=== PATIENT | female | born 1955 | race Caucasian/White ===

== ENCOUNTER 2022-06-25 00:36 | Inpatient (IN) | payer MEDICARE, OTHER ==
[2022-06-25 00:47] VITALS: BMI 39.0
[2022-06-25] MEDS ORDERED: ACETAMINOPHEN 1000 MG/100 ML BAG IVPB ONE (03:27)
[2022-06-25] MEDS ORDERED: ACETAMINOPHEN INJECTION 100 ML IVPB ONE (03:31)
[2022-06-25 03:39] LABS: EPI CELLS >36 /uL (0-25.1); HYALINE CASTS 10 /uL (0-3.1); URINE APPEARANCE TURBID; URINE BACTERIA 4765 /uL (0-1359); URINE BILIRUBIN 1+ (NEGATIVE); URINE COLOR DK YELLOW; URINE GLUCOSE (UA) TRACE (NEGATIVE); URINE KETONE TRACE (NEGATIVE); URINE LEUK ESTERASE 2+ (NEGATIVE); URINE NITRITE POSITIVE (NEGATIVE); URINE PROTEIN 2+ (NEGATIVE); URINE WBC 1354 /uL (0-25.8)
[2022-06-25 03:55] LABS: BASO % 0.7 % (0-2.0); EOS % 1.9 % (0-4.5); HEMATOCRIT 27.6 % (32.4-45.2); HEMOGLOBIN 9.2 GM/dL (10.7-15.3); LYMPH % 9.1 % (8-40); MCH 26.7 pg (25.7-33.7); MCHC 33.1 g/dl (32.0-36.0); MEAN CELL VOLUME 80.7 fl (80-96); MEAN PLT VOLUME 6.1 fl (7.5-11.1); MONO % 9.2 % (3.8-10.2); NEUT % 79.1 % (42.8-82.8); PLATELET COUNT 593 10^3/uL (134-434); RBC 3.43 M/mm3 (3.60-5.2); RDW 15.9 % (11.6-15.6)
[2022-06-25 03:56] LABS: INR 1.19 (0.83-1.09); PROTHROMBIN TIME (PATIENT) 13.8 SEC (9.7-13.0)
[2022-06-25] MEDS ORDERED: CEFTRIAXONE 1,000 MG in DEXTROSE 5%-WATER - 50 ML IVPB ONE (04:09)
[2022-06-25 04:14] LABS: ALBUMIN 1.9 g/dl (3.4-5.0); BLOOD UREA NITROGEN 28.3 mg/dL (7-18); CALCIUM 8.1 mg/dL (8.5-10.1)
[2022-06-25 04:17] LABS: CREATININE 1.8 mg/dL (0.55-1.3)
[2022-06-25 04:19] LABS: BILIRUBIN,TOTAL 0.6 mg/dL (0.2-1); TOT PROT 6.5 g/dl (6.4-8.2)
[2022-06-25 04:22] LABS: N-TERMINAL BNP 315.9 pg/ml (5-125)
[2022-06-25] MEDS ORDERED: CEFTRIAXONE 1 GM/50 ML BAG ONE (04:32)
[2022-06-25] MEDS ORDERED: SODIUM CHLORIDE 1,000 ML IV STA ×2 (05:03→14:45)
[2022-06-25] MEDS ORDERED: amLODIPine BESYLATE 10 MG TABLET (FP) PO ONE (09:45)
[2022-06-25] MEDS ORDERED: LISINOPRIL 20 MG TABLET PO SCH (10:00)
[2022-06-25] MEDS ORDERED: PANTOPRAZOLE 40 MG TABLET PO ONE (10:01)
[2022-06-25] MEDS: PANTOPRAZOLE 40 MG TABLET PO SCH (10:20)
[2022-06-25] MEDS ORDERED: ALBUMIN HUMAN 25% 100 ML VIAL IV ONE (10:30)
[2022-06-25 10:53] LABS: URINE RBC 65.5 /uL (0-23.9)
[2022-06-25 13:41] LABS: BF WBC & OTHER NUCLEATED CELLS 502 /mm3
[2022-06-25 14:08] LABS: BODY FLUID MACROPHAGES 21 %; BODY FLUID MESOTHELIAL 2 %; BODY FLUID MONOCYTE 13 %
[2022-06-25] MEDS: INSULIN SLIDING SCALE (NOVOLOG) 1 VIAL SQ SCH ×3 (14:44→21:10)
[2022-06-25] MEDS: ALBUMIN HUMAN 25% 12.5 GM/50 ML VIAL IV SCH ×4 (15:54→18:02)
[2022-06-25] MEDS ORDERED: SODIUM CHLORIDE 500 ML IV STA ×2 (16:13→18:01)
[2022-06-25 20:29] LABS: INR 1.31 (0.83-1.09); PROTHROMBIN TIME (PATIENT) 15.1 SEC (9.7-13.0)
[2022-06-25] MEDS ORDERED: ATORVASTATIN CA 40 MG TABLET (FP) ONE (20:37)
[2022-06-25] MEDS: ATORVASTATIN CA 40 MG TABLET (FP) PO SCH (21:10)
[2022-06-26] MEDS: INSULIN SLIDING SCALE (NOVOLOG) 1 VIAL SQ SCH ×4 (07:07→22:36)
[2022-06-26] MEDS ORDERED: ENOXAPARIN NA (PORCINE) 40 MG/0.4 ML DISP.SYRIN SQ SCH (10:00)
[2022-06-26 10:02] LABS: HEMATOCRIT 22.2 % (32.4-45.2); HEMOGLOBIN 7.6 GM/dL (10.7-15.3); MCH 27.6 pg (25.7-33.7); MCHC 34.3 g/dl (32.0-36.0); MEAN CELL VOLUME 80.3 fl (80-96); MEAN PLT VOLUME 6.5 fl (7.5-11.1); PLATELET COUNT 429 10^3/uL (134-434); RBC 2.77 M/mm3 (3.60-5.2); RDW 16.1 % (11.6-15.6)
[2022-06-26 10:11] LABS: CALCIUM 7.7 mg/dL (8.5-10.1)
[2022-06-26 10:12] LABS: ALBUMIN 2.2 g/dl (3.4-5.0); BLOOD UREA NITROGEN 19.8 mg/dL (7-18); MAGNESIUM 1.9 mg/dL (1.8-2.4)
[2022-06-26 10:15] LABS: CREATININE 1.1 mg/dL (0.55-1.3); PHOSPHOROUS 3.2 mg/dL (2.5-4.9)
[2022-06-26 10:16] LABS: BILIRUBIN,TOTAL 0.6 mg/dL (0.2-1)
[2022-06-26] MEDS: PANTOPRAZOLE 40 MG TABLET PO SCH (10:29)
[2022-06-26] MEDS: CEFTRIAXONE 1 GM in DEXTROSE 5%-WATER - 50 ML IVPB SCH (10:29)
[2022-06-26 16:08] LABS: BODY FLUID ALBUMIN 2.4 g/dL (Not Estab.)
[2022-06-26 17:09] LABS: RETICULOCYTES 1.64 % (0.5-1.5)
[2022-06-26 17:32] LABS: ANISOCYTOSIS 2+; MACROCYTOSIS 0; OVALOCYTE 1+; TARGET CELLS 1+
[2022-06-26] MEDS: ATORVASTATIN CA 40 MG TABLET (FP) PO SCH (22:36)
[2022-06-27] MEDS ORDERED: INSULIN (NOVOLOG) ASPART 100 UNITS/ML 10ML VIAL ONE (05:54)
[2022-06-27] MEDS: INSULIN SLIDING SCALE (NOVOLOG) 1 VIAL SQ SCH ×4 (06:29→22:15)
[2022-06-27 09:19] LABS: BASO % 0.8 % (0-2.0); EOS % 2.8 % (0-4.5); HEMATOCRIT 24.6 % (32.4-45.2); HEMOGLOBIN 8.1 GM/dL (10.7-15.3); LYMPH % 6.9 % (8-40); MCH 26.4 pg (25.7-33.7); MCHC 33.1 g/dl (32.0-36.0); MEAN CELL VOLUME 79.7 fl (80-96); MEAN PLT VOLUME 6.2 fl (7.5-11.1); MONO % 10.6 % (3.8-10.2); NEUT % 78.9 % (42.8-82.8); PLATELET COUNT 453 10^3/uL (134-434); RBC 3.08 M/mm3 (3.60-5.2); RDW 16.4 % (11.6-15.6); WHITE BLOOD COUNT 6.3 K/mm3 (4.0-10.0)
[2022-06-27 09:36] LABS: CALCIUM 7.8 mg/dL (8.5-10.1)
[2022-06-27 09:37] LABS: ALBUMIN 1.8 g/dl (3.4-5.0); BLOOD UREA NITROGEN 17.3 mg/dL (7-18); MAGNESIUM 1.9 mg/dL (1.8-2.4)
[2022-06-27 09:40] LABS: CREATININE 0.8 mg/dL (0.55-1.3); PHOSPHOROUS 2.7 mg/dL (2.5-4.9)
[2022-06-27 09:41] LABS: BILIRUBIN,TOTAL 0.6 mg/dL (0.2-1); TOT PROT 4.8 g/dl (6.4-8.2)
[2022-06-27] MEDS ORDERED: FUROSEMIDE 40 MG TABLET (FP) PO SCH (10:00)
[2022-06-27] MEDS: CEFTRIAXONE 1 GM in DEXTROSE 5%-WATER - 50 ML IVPB SCH (10:37)
[2022-06-27] MEDS: PANTOPRAZOLE 40 MG TABLET PO SCH (10:37)
[2022-06-27] MEDS ORDERED: SPIRONOLACTONE 25 MG TABLET PO SCH (11:00)
[2022-06-27] MEDS: ATORVASTATIN CA 40 MG TABLET (FP) PO SCH (22:15)
[2022-06-28] MEDS ORDERED: ACETAMINOPHEN 1000 MG/100 ML BAG IVPB ONE (02:29)
[2022-06-28] MEDS: INSULIN SLIDING SCALE (NOVOLOG) 1 VIAL SQ SCH ×4 (06:31→22:45)
[2022-06-28 09:36] LABS: BASO % 0.6 % (0-2.0); EOS % 4.1 % (0-4.5); HEMATOCRIT 23.8 % (32.4-45.2); HEMOGLOBIN 7.8 GM/dL (10.7-15.3); LYMPH % 9.5 % (8-40); MCH 26.1 pg (25.7-33.7); MCHC 32.8 g/dl (32.0-36.0); MEAN CELL VOLUME 79.6 fl (80-96); MONO % 9.8 % (3.8-10.2); PLATELET COUNT 449 10^3/uL (134-434); RBC 2.99 M/mm3 (3.60-5.2); RDW 16.6 % (11.6-15.6); WHITE BLOOD COUNT 5.8 K/mm3 (4.0-10.0)
[2022-06-28 10:07] LABS: CALCIUM 7.4 mg/dL (8.5-10.1)
[2022-06-28 10:08] LABS: ALBUMIN 1.6 g/dl (3.4-5.0); BLOOD UREA NITROGEN 19.4 mg/dL (7-18); MAGNESIUM 1.5 mg/dL (1.8-2.4)
[2022-06-28 10:11] LABS: CREATININE 0.8 mg/dL (0.55-1.3)
[2022-06-28 10:12] LABS: BILIRUBIN,TOTAL 0.5 mg/dL (0.2-1); TOT PROT 4.8 g/dl (6.4-8.2)
[2022-06-28] MEDS: CEFTRIAXONE 1 GM in DEXTROSE 5%-WATER - 50 ML IVPB SCH (10:27)
[2022-06-28] MEDS: PANTOPRAZOLE 40 MG TABLET PO SCH (10:27)
[2022-06-28] MEDS ORDERED: MAGNESIUM SULF 50% (8.12 MEQ/2 ML-1 GM VIAL) IVPB ONE (11:05)
[2022-06-28] MEDS ORDERED: ONDANSETRON 4 MG/2 ML VIAL IVPB PRN (14:55)
[2022-06-28] MEDS ORDERED: SODIUM CHLORIDE 0.45% 1,000 ML IV SCH (15:00)
[2022-06-28] MEDS: ATORVASTATIN CA 40 MG TABLET (FP) PO SCH (22:45)
[2022-06-29] MEDS: INSULIN SLIDING SCALE (NOVOLOG) 1 VIAL SQ SCH ×4 (06:46→21:11)
[2022-06-29 08:41] LABS: CALCIUM 7.4 mg/dL (8.5-10.1)
[2022-06-29 08:42] LABS: ALBUMIN 1.6 g/dl (3.4-5.0); BLOOD UREA NITROGEN 16.9 mg/dL (7-18); MAGNESIUM 1.6 mg/dL (1.8-2.4)
[2022-06-29 08:45] LABS: BASO % 0.7 % (0-2.0); CREATININE 0.7 mg/dL (0.55-1.3); EOS % 3.5 % (0-4.5); HEMATOCRIT 22.3 % (32.4-45.2); HEMOGLOBIN 7.5 GM/dL (10.7-15.3); LYMPH % 7.5 % (8-40); MCH 26.8 pg (25.7-33.7); MCHC 33.7 g/dl (32.0-36.0); MEAN CELL VOLUME 79.5 fl (80-96); MEAN PLT VOLUME 6.5 fl (7.5-11.1); MONO % 8.2 % (3.8-10.2); NEUT % 80.1 % (42.8-82.8); PHOSPHOROUS 3.3 mg/dL (2.5-4.9); PLATELET COUNT 430 10^3/uL (134-434); RBC 2.81 M/mm3 (3.60-5.2); RDW 16.2 % (11.6-15.6); WHITE BLOOD COUNT 5.9 K/mm3 (4.0-10.0)
[2022-06-29 08:46] LABS: BILIRUBIN,TOTAL 0.6 mg/dL (0.2-1); TOT PROT 4.8 g/dl (6.4-8.2)
[2022-06-29] MEDS: CEFTRIAXONE 1 GM in DEXTROSE 5%-WATER - 50 ML IVPB SCH (09:46)
[2022-06-29] MEDS: PANTOPRAZOLE 40 MG TABLET PO SCH (09:46)
[2022-06-29] MEDS: ATORVASTATIN CA 40 MG TABLET (FP) PO SCH (21:11)
[2022-06-30] MEDS: INSULIN SLIDING SCALE (NOVOLOG) 1 VIAL SQ SCH ×4 (06:25→22:48)
[2022-06-30 09:08] LABS: BASO % 0.7 % (0-2.0); EOS % 3.3 % (0-4.5); HEMATOCRIT 23.2 % (32.4-45.2); HEMOGLOBIN 7.7 GM/dL (10.7-15.3); LYMPH % 8.8 % (8-40); MCH 26.2 pg (25.7-33.7); MEAN CELL VOLUME 79.4 fl (80-96); MEAN PLT VOLUME 6.5 fl (7.5-11.1); MONO % 9.7 % (3.8-10.2); NEUT % 77.5 % (42.8-82.8); PLATELET COUNT 474 10^3/uL (134-434); RBC 2.93 M/mm3 (3.60-5.2); RDW 16.2 % (11.6-15.6); WHITE BLOOD COUNT 5.3 K/mm3 (4.0-10.0)
[2022-06-30 09:49] LABS: ALBUMIN 1.6 g/dl (3.4-5.0); CALCIUM 7.9 mg/dL (8.5-10.1)
[2022-06-30 09:50] LABS: BLOOD UREA NITROGEN 16.7 mg/dL (7-18); MAGNESIUM 1.9 mg/dL (1.8-2.4)
[2022-06-30 09:52] LABS: BILIRUBIN,TOTAL 0.5 mg/dL (0.2-1)
[2022-06-30 09:53] LABS: CREATININE 0.6 mg/dL (0.55-1.3); PHOSPHOROUS 3.1 mg/dL (2.5-4.9)
[2022-06-30] MEDS: CEFTRIAXONE 1 GM in DEXTROSE 5%-WATER - 50 ML IVPB SCH (11:16)
[2022-06-30] MEDS: PANTOPRAZOLE 40 MG TABLET PO SCH (11:17)
[2022-06-30] MEDS ORDERED: ALBUMIN HUMAN 25% 100 ML VIAL IV ONE (13:00)
[2022-06-30] MEDS ORDERED: FAMOTIDINE 20 MG/50 ML IVPB 20 MG/50 ML MG IVPB ONE (13:29)
[2022-06-30] MEDS: ATORVASTATIN CA 40 MG TABLET (FP) PO SCH (22:47)
[2022-07-01] MEDS: INSULIN SLIDING SCALE (NOVOLOG) 1 VIAL SQ SCH ×3 (06:14→17:26)
[2022-07-01] MEDS: CEFTRIAXONE 1 GM in DEXTROSE 5%-WATER - 50 ML IVPB SCH (09:03)
[2022-07-01] MEDS: PANTOPRAZOLE 40 MG TABLET PO SCH (09:03)
[2022-07-01 10:45] LABS: BASO % 1.1 % (0-2.0); EOS % 1.5 % (0-4.5); HEMATOCRIT 25.1 % (32.4-45.2); HEMOGLOBIN 8.3 GM/dL (10.7-15.3); LYMPH % 8.1 % (8-40); MCHC 33.2 g/dl (32.0-36.0); MEAN CELL VOLUME 78.3 fl (80-96); MEAN PLT VOLUME 6.7 fl (7.5-11.1); MONO % 8.7 % (3.8-10.2); NEUT % 80.6 % (42.8-82.8); PLATELET COUNT 574 10^3/uL (134-434); WHITE BLOOD COUNT 4.9 K/mm3 (4.0-10.0)
[2022-07-01 11:09] LABS: BLOOD UREA NITROGEN 14.3 mg/dL (7-18); MAGNESIUM 1.8 mg/dL (1.8-2.4)
[2022-07-01 11:12] LABS: CREATININE 0.7 mg/dL (0.55-1.3)
[2022-07-01 11:13] LABS: PHOSPHOROUS 2.6 mg/dL (2.5-4.9)
[2022-07-01 11:14] LABS: BILIRUBIN,TOTAL 0.5 mg/dL (0.2-1); TOT PROT 5.5 g/dl (6.4-8.2)
[2022-07-01 11:15] LABS: ALBUMIN 1.9 g/dl (3.4-5.0)
[2022-07-01 14:12] VITALS: BP 108/63; PULSE 83; RESP 18; TEMP 98.6
[2022-07-01 19:41] LABS: EPI CELLS >36 /uL (0-25.1); HYALINE CASTS 8 /uL (0-3.1); PH,URINE 5.5 (5.0-8.0); URINE APPEARANCE TURBID; URINE BACTERIA 11 /uL (0-1359); URINE BILIRUBIN NEGATIVE (NEGATIVE); URINE COLOR ORANGE; URINE GLUCOSE (UA) TRACE (NEGATIVE); URINE KETONE TRACE (NEGATIVE); URINE LEUK ESTERASE NEGATIVE (NEGATIVE); URINE NITRITE NEGATIVE (NEGATIVE); URINE PROTEIN 1+ (NEGATIVE); URINE RBC 14 /uL (0-23.9)
[2022-07-01 20:54] LABS: URINE CRYSTALS FEW URIC ACID CRYSTA /hpf; URINE WBC 82.2 /uL (0-25.8)
== END 2022-07-01 18:10 | disposition home or self-care (01) | DRG 755 ==
LOC: JER 00:36 → JERBED 07:32 → J6S 22:00
PROVIDERS: ADMIT Internal Medicine; ATTEND Internal Medicine
PROC: 0W9G3ZX Drainage of Peritoneal Cavity, Percutaneous Approach, Diagnostic (ICD-10-PCS; principal; 2022-06-25)
PROC: 0W9G3ZX Drainage of Peritoneal Cavity, Percutaneous Approach, Diagnostic (ICD-10-PCS; 2022-06-30)
DX: C55 Malignant neoplasm of uterus, part unspecified (principal); N17.9 Acute kidney failure, unspecified; N39.0 Urinary tract infection, site not specified; R18.0 Malignant ascites; D64.9 Anemia, unspecified; I10 Essential (primary) hypertension; E78.5 Hyperlipidemia, unspecified; K21.9 Gastro-esophageal reflux disease without esophagitis; E87.70 Fluid overload, unspecified
CPT/HCPCS: 0241U-QW; 36415; 71250-TC; 74018-TC-FY; 74176-TC; 76942-TC; 80053; 81003; 82042; 82150; 82272; 82378; 82465; 82607; 82728; 82746; 82945; 82962; 83036; 83516; 83540; 83550; 83605; 83615; 83690; 83735; 83880; 83986; 84100; 84155; 84157; 84165; 84478; 84484; 84560; 85025; 85027; 85045; 85610; 85730; 86038; 86140; 86301; 86304; 86705; 86708; 86850; 86900; 86901; 87040; 87070; 87075; 87086; 87102; 87116; 87205; 87206; 87210; 87517; 88108; 88305-TC; 88341-TC; 93005; 93010; 93970-TC; 97116-GP; 97162-GP; 99285-25; P9047